=== PATIENT | female | born 1960 | race Hispanic/Latino ===

== ENCOUNTER 2017-11-02 13:21 | Outpatient (CLI) | payer SELFPAY ==
--- NOTE | 2017-11-02 14:11 | RAD ---
ABDOMEN TWO VIEWS: 11/02/2017 PROVIDED CLINICAL HISTORY: Hematuria. Constipation. FINDINGS: The visualized lung bases are clear. The abdominal bowel gas pattern is nonspecific. The liver appe ars enlarged in craniocaudal dimension, which could reflect hepatomegaly or Óscar's configuration of the right hepatic lobe. No radiographically apparent urinary tract calculi. The abdominal bowel ga s pattern is nonspecific. There is no evidence for pneumoperitoneum. IMPRESSION: 1. Nonspecific bowel gas pattern. 2. Prominence of the right hepatic lobe. POS: DERRICK
== END 2017-11-02 13:22 | disposition home or self-care (01) ==
LOC: SCSRAD 13:21
PROVIDERS: ATTEND Family Medicine
DX: R31.9 Hematuria, unspecified (principal)
CPT/HCPCS: 74019